=== PATIENT | male | born 1960 | race Caucasian/White ===

== ENCOUNTER → 2024-11-07 | Outpatient (CLI) | payer MEDICAID, SELFPAY ==
--- NOTE | 2024-11-07 14:00 | XR_ITS ---
Examination: Abdomen sonogram, complete Date and time of exam: November 07, 2024 1358 hours INDICATIONS: Diagnosis alcoholic cirrhosis of the liver 5 years ago with ascites. Technique: Multiple real-time grayscale transabdominal sonographic images of the abdomen have been obtained. Findings: Absent gallbladder Common bile duct 0.3 cm Pancreatic head 2.3 cm Aorta not enlarged. Liver 12.5 cm irregular contour fatty infiltration no liver lesions Normal hepatopedal portal venous flow Patent IVC Right kidney 10.0 cm cortex 1.9 cm Left kidney 10.7 cm cortex 2.0 cm Moderate renal scar formation Spleen 11.4 cm IMPRESSION: Normal common bile duct Cirrhosis no focal liver lesions
== END | disposition home or self-care (01) ==
LOC: CDIM 13:35
PROVIDERS: PCP Internal Medicine; Referring Provider Internal Medicine; Visit Provider Internal Medicine
DX: K74.60 Unspecified cirrhosis of liver (principal)
CPT/HCPCS: 76700